=== PATIENT | male | born 1980 | race African-American/Black ===

== ENCOUNTER 2017-10-02 16:13 | Emergency (ER) | payer BC, MEDICAID ==
[~2017-10-02] VITALS: Ht 177.8 cm; Wt 299.0 kg
[2017-10-02] MEDS ORDERED: METHYLPREDNISOLONE SOD SUCC 125 MG/2 ML VIAL IV STA (17:32)
[2017-10-02] MEDS ORDERED: ONDANSETRON HCL 4MG/2ML VIAL IV STA (17:32)
[2017-10-02] MEDS ORDERED: SODIUM CHLORIDE 0.9% 1,000 ML IV ONE (17:32)
[2017-10-02] MEDS ORDERED: LEVOFLOXACIN 750MG PREMIX 150 ML IV ONE (17:45)
[2017-10-02] MEDS ORDERED: IPRATROPIUM/ALBUTEROL 0.5-3(2.5)MG/3ML NEB HHN ONE (17:45)
[2017-10-02 18:11] LABS: BASOPHILS % 0.3 % (0.0-2.0); CHLORIDE 103 mEq/L (98-107); EOSINOPHILS % 2.5 % (0.0-5.0); HEMATOCRIT. 36.2 % (42.0-52.0); HEMOGLOBIN. 11.4 g/dL (14.0-18.0); LYMPHOCYTES % 33.9 % (20.0-50.0); MEAN CORPUSCULAR HEMOGLOBIN 25.7 pg (28.0-32.0); MEAN CORPUSCULAR VOLUME 81.2 fL (80.0-94.0); MEAN PLATELET VOLUME 6.8 fl (7.4-10.4); NEUTROPHILS % 56.3 % (40.0-76.0); PLATELET 322 x1000/uL (130-400); RED BLOOD CELL COUNT 4.45 mill/uL (4.7-6.1); RED CELL DISTRIBUTION WIDTH 15.7 % (11.6-14.6)
[2017-10-02 18:13] LABS: D-DIMER 1.4 mg/L FEU (<0.50); PARTIAL THROMBOPLASTIN TIME 25.2 sec (23.4-31.0); PROTHROMBIN TIME 10.4 sec (9.4-11.6)
[2017-10-02 18:18] LABS: CREATINE KINASE 333 IU/L (39-308); TROPONIN I < 0.02 ng/mL (0.00-0.04)
[2017-10-03 00:08] VITALS: BP 125/77
== END 2017-10-03 00:09 | disposition home or self-care (01) ==
LOC: ER 16:40
DX: J40 Bronchitis, not specified as acute or chronic (principal); R53.1 Weakness; R61 Generalized hyperhidrosis
CPT/HCPCS: 36415; 71045; 80053; 82550; 83605; 83690; 83880; 84484; 85025; 85379; 85610; 85730; 87040; 93005; 94640; 96365; 96366; 96375; 99285; J1956; J2405; J2930; J7030; J7620; Z7610

== ENCOUNTER 2019-08-05 18:44 | Emergency (ER) | payer BC, MEDICAID ==
[~2019-08-05] VITALS: Ht 182.9 cm; Wt 205.0 kg
[2019-08-05] MEDS ORDERED: CLOTRIMAZOLE/BETAMETHASONE 1/0.05% CREAM 15GM TOP ONE (20:30)
[2019-08-05 22:20] VITALS: BP 135/78
== END 2019-08-05 22:21 | disposition home or self-care (01) ==
LOC: ER 18:44
DX: B37.2 Candidiasis of skin and nail (principal); L08.9 Local infection of the skin and subcutaneous tissue, unspecified; J45.909 Unspecified asthma, uncomplicated; E66.01 Morbid (severe) obesity due to excess calories; Z68.44 Body mass index [BMI] 60.0-69.9, adult; Z98.890 Other specified postprocedural states
CPT/HCPCS: 99283; Z7610

== ENCOUNTER 2020-04-20 15:45 | Emergency (ER) | payer MEDICAID ==
[~2020-04-20] VITALS: Ht 172.7 cm; Wt 228.0 kg
[2020-04-20] MEDS ORDERED: LIDOCAINE 5% PATCH TOP SCH (16:30)
[2020-04-20] MEDS ORDERED: BACLOFEN 10MG TABLET PO ONE (16:30)
[2020-04-20] MEDS ORDERED: KETOROLAC 60MG/2ML VIAL IM ONE (16:30)
[2020-04-20] MEDS ORDERED: ACETAMINOPHEN 325MG TABLET PO ONE (16:30)
[2020-04-20] MEDS ORDERED: DEXAMETHASONE 10 MG/ML VIAL PO ONE (16:30)
[2020-04-20] MEDS ORDERED: DEXAMETHASONE 10 MG/ML VIAL IM ONE (17:45)
[2020-04-20 23:52] VITALS: BP 138/58
== END 2020-04-20 21:16 | disposition home or self-care (01) ==
LOC: ER 15:45
DX: M54.32 Sciatica, left side (principal); M54.31 Sciatica, right side; J45.909 Unspecified asthma, uncomplicated; Z98.890 Other specified postprocedural states
CPT/HCPCS: 96372; 99285; J1100; J1885; Z7610

== ENCOUNTER 2024-07-31 17:26 | Emergency (ER) | payer MEDICARE, MEDICAID ==
[~2024-07-31] VITALS: Ht 182.9 cm; Wt 310.0 kg
[2024-07-31 17:29] VITALS: O2SAT 0
[2024-07-31 17:30] VITALS: BP 0/0; PULSE 0; RESP 0; O2SAT 0
== END 2024-07-31 18:04 ==
LOC: ER 17:26
DX: I46.9 Cardiac arrest, cause unspecified (principal); J44.9 Chronic obstructive pulmonary disease, unspecified; I11.0 Hypertensive heart disease with heart failure; I50.9 Heart failure, unspecified
CPT/HCPCS: 31500; 92950; 99291